=== PATIENT | female | born 1980 | race Caucasian/White ===

== ENCOUNTER 2019-09-20 12:25 | Outpatient (CLI) | payer OTHER ==
--- NOTE | 2019-09-20 13:15 | RAD ---
LEFT WRIST 3 VIEWS: Date: 09/20/19 HISTORY: Left wrist injury following a fall while running. FINDINGS/IMPRESSION: No fracture, dislocation, or other significant acute process. If patient has persistent or worsening unexplained pain, consider short-term follow-up study in 1-2 w eeks, or follow-up imaging with MRI. POS: [facility]
== END 2019-09-20 12:26 | disposition home or self-care (01) ==
LOC: SCSRAD 12:25
PROVIDERS: ATTEND Family Medicine
DX: M25.532 Pain in left wrist (principal); W19.XXXA Unspecified fall, initial encounter